=== PATIENT | female | born 1935 | race American Indian/Alaskan Native ===

== ENCOUNTER 2016-08-08 09:53 | Day surgery (SDC) | payer MEDICARE, OTHER ==
[2016-08-07 07:40] VITALS: BMI 27.4
[2016-08-08] MEDS ORDERED: Lidocaine 2% Inj (20ml) ONE (11:36)
[2016-08-08] MEDS ORDERED: DiphenhydrAMINE 50 mg/ml Inj ONE (11:37)
[2016-08-08] MEDS ORDERED: Midazolam 2 MG/2 ML VIAL ONE (11:37)
[2016-08-08] MEDS ORDERED: Sodium Chloride 0.9% 500 ML IV SCH (12:15)
[2016-08-08] MEDS ORDERED: Sodium Chloride 0.9% 500 ML IV ONE (13:21)
--- NOTE | 2016-08-08 13:49 | CARDCATH ---
PROCEDURE DATE: 08/08/2016 BRIEF CLINICAL HISTORY: The patient is a 80-year-old female with a history of hypertension, diastolic dysfunction, dyspnea an d chest pressure who had a stress test done which was positive for anterior defect. After discussing with the patient to rule out the etiology of her symptoms, the patient was advised for right and lef t heart cardiac catheterization which she agreed for, and the patient was scheduled for elective righ t and left cardiac catheterization at [facility]. PROCEDURE TECHNIQUE: After consenting, the patient was prepared for the procedure. Right groin and Judkin technique was used for access. After obtaining the venous access, a 7 [place] sheath was intro duced into the right femoral vein and the venous access was completed. After completing the right ve nous access, arterial access was obtained and 6 [place] sheath was introduced into the right femoral a rtery and access was completed without any complication. [place] catheter was used to assess the r ight-sided pressures. The right-sided PA pressure appears to be moderately elevated. Mean RA pressu re is about 10 mmHg. After completing right-sided pressures, left heart catheterization was pe rformed. A 6 [place] JL catheter was used to assess the left arterial system. A 6 [place] JR4 cathete r was used to visualize the right coronary artery system. A 6 [place] pigtail catheter was used to as sess the left ventricle end diastolic pressure and ventriculogram. The patient had a normal left vei n and there is about 50% disease in the mid vessel with severe tortuosity. The circumflex artery has minimal disease and is codominant. The right coronary artery has anterior takeoff with a small size vessel that is codominant. LV systolic pressure is mildly reduced. ASSESSMENT: Nonobstructive coronary artery disease, mild left ventricular systolic dysfunction, with the ri ght-sided pressure. PLAN: The patient will be observed in the holding area where she is given the IV fluid and the patient will be discharged home. We will try to maximize the CHF therapy, control blood pressure and will have P FTs to rule out any causes of the shortness of breath. Sara Can MD cc: [id number] TT: 08/08/2016 13:48:37 an
[2016-08-08 16:23] VITALS: BP 140/66; PULSE 86; RESP 20; TEMP 98; O2SAT 97
== END 2016-08-08 16:26 | disposition home or self-care (01) ==
LOC: C.CATHLAB 09:53
PROVIDERS: ATTEND Internal Medicine
DX: I25.10 Atherosclerotic heart disease of native coronary artery without angina pectoris (principal); I10 Essential (primary) hypertension; E11.9 Type 2 diabetes mellitus without complications; Z95.0 Presence of cardiac pacemaker
CPT/HCPCS: 82948; 93460; C1714; C1760; C1766; C1769; C1887; J1200; J1644; J2250; J3010; J7040; Q9967